=== PATIENT | male | born 1940 | race Hispanic/Latino ===

== ENCOUNTER → 2020-08-23 | Outpatient (CLI) | payer MEDICARE ==
[~2020-08-23] MED LIST: AMLODIPINE BESYL5 MG PO; ASPIRIN EC81 MG PO; ATORVASTATIN CA20 MG PO; BENICAR HCT 201 EACH PO; BENICAR20 MG PO; CLONIDINE HCL0.1 MG PO; DOXYCYCLINE HY100 MG PO; EFFIENT10 MG PO; GLIPIZIDE XL5 MG PO; IOPAMIDOL 200 MG/ML 20 ML VIAL IT ONE; IOPAMIDOL 300 MG/ML 15ML VIAL IT ONE; LANTUS100 UNITS/ SQ; LIDOCAINE HCL 1% LOCAL INJ 20 ML VIAL ONE; LOPRESSOR25 MG PO; METFORMIN HCL500 MG PO; NITROSTAT0.4 MG SL; PLAVIX75 MG PO; QUESTRAN PACKET4 GM PO; SIMVASTATIN20 MG PO; TORSEMIDE10 MG PO
[2020-08-23 12:41] LABS: HEMOGLOBIN 13.6 g/dL (14.0-18.0)
[2020-08-23 12:56] LABS: INR 0.91; PROTHROMBIN TIME 12.8 seconds (11.9-14.5)
[2020-08-23 12:57] LABS: PARTIAL THROMBOPLASTIN TIME 32.3 seconds (23.8-35.5)
== END ==
LOC: DX 12:07
PROVIDERS: ATTEND Neurological Surgery
DX: M54.16 Radiculopathy, lumbar region (principal)
CPT/HCPCS: 36415; 62304; 72110; 72132; 85014; 85049; 85610; 85730; J2001; Q9967